=== PATIENT | female | born 2000 ===

== ENCOUNTER → 2018-12-22 | Outpatient (CLI) | payer OTHER ==
[~2018-12-22] VITALS: Ht 149.9 cm; Wt 45.4 kg
[~2018-12-22] MED LIST: AMOX1TAB5 PO; MEDROL4 MG PO
== END | disposition home or self-care (01) ==
LOC: OFIC 805 09:15
DX: J35.1 Hypertrophy of tonsils (principal); J03.80 Acute tonsillitis due to other specified organisms; B27.80 Other infectious mononucleosis without complication